=== PATIENT | female | born 2000 | race Caucasian/White ===

== ENCOUNTER 2020-05-25 17:18 | Inpatient (IN) ==
[2020-05-25 17:47] LABS: Basophils % 0.3 %; Eosinophils # 0.3 K/mcL (0.0-0.6); Hemoglobin 16.7 g/dL (11.5-15.4); Immature Granulocytes % 0.3 % (0-4); Lymphocytes # 2.8 K/mcL (0.6-4.6); Mean Corpuscular HGB Conc 32.7 g/dL (31.6-35.5); Mean Corpuscular Volume 91.7 fL (83.0-100.0); Mean Platelet Volume 8.8 fL (9.4-12.4); Monocytes # 0.7 K/mcL (0.0-1.3); Monocytes % 5.3 %; Neutrophils # 8.5 K/mcL (1.6-8.9); Platelet Count 350 K/mcL (140-400); Red Blood Count 5.56 M/mcL (3.82-4.97); Red Cell Distribution Width 12.6 % (11.5-14.5); Segmented Neutrophils % 69.1 %; White Blood Count 12.4 K/mcL (4.3-11.1)
[2020-05-25 17:55] LABS: Bacteria,Urine Few per hpf (None-Few); Bilirubin,Urine Negative (Negative); Blood,Urine Negative (Negative); Clarity,Urine Turbid (Clear); Color,Urine Yellow (Yellow); Glucose,Urine (UA) Normal (Normal); Ketones,Urine Negative (Negative); Leukocyte Esterase,Urine Trace (Negative); Mucus,Urine Moderate per lpf (None-Few); Nitrite,Urine Negative (Negative); Protein,Urine 50 mg/dL (Neg-Trace); RBC,Urine 0-3 per hpf (0-3); Specific Gravity,Urine 1.028 (1.010-1.025); Squamous Epithelial Cell,Urine Many per hpf (None-Few); Urobilinogen,Urine Normal (Normal)
[2020-05-25 18:05] LABS: Amphetamine Screen,Urine Negative ng/mL (Cutoff=1000); Barbiturate Screen,Urine Negative ng/mL (Cutoff=200); Benzodiazepines Screen,Urine Negative ng/mL (Cutoff=200); Cannabinoid Screen,Urine Negative ng/mL (Cutoff = 50); Cocaine Screen,Urine Positive ng/mL (Cutoff= 300); Opiate Screen,Urine Negative ng/mL (Cutoff=300); Phencyclidine Screen,Urine Negative ng/mL (Cutoff=25)
[2020-05-25 18:05] LABS: Acetaminophen < 10 mcg/mL (10-20); BUN/Creatinine Ratio 13 (6-26); Blood Urea Nitrogen 12 mg/dL (6-20); Calcium 9.5 mg/dL (8.6-10.3); Carbon Dioxide 27 mEq/L (23-29); Chloride 103 mEq/L (98-107); Chol/HDL Ratio 1.6 (0-4.9); Cholesterol 75 mg/dL (< 200); Ethanol < 10 mg/dL (Less than 10); Glucose 98 mg/dL (70-105); HDL Cholesterol 47 mg/dL (40-59); LDL Cholesterol,Calculated 10 mg/dL (< 100); Osmolality,Calculated 286 (280-300); Potassium 3.5 mEq/L (3.5-5.1); Salicylate < 2.5 mg/dL (15.0-30.0); Sodium 138 mEq/L (136-145); Triglycerides 89 mg/dL (< 150); eGFR For African Americans > 60 (> 60); eGFR For Non-African Americans > 60 (> 60)
[2020-05-25] MEDS ORDERED: *HR* LORazepam 2 MG/ML VIAL IM PRN (19:07)
[2020-05-25] MEDS ORDERED: Haloperidol Lactate 5 MG/ML VIAL IM PRN (19:07)
[2020-05-25] MEDS ORDERED: Mag Hydrox/Al Hydrox/Simeth 30 ML UDC PO PRN (19:07)
[2020-05-25] MEDS ORDERED: haloperidoL 5 MG TABLET PO PRN (19:07)
[2020-05-25] MEDS ORDERED: MOM Conc 10 ML UD.LIQ PO PRN (19:07)
[2020-05-25] MEDS ORDERED: *HR* LORazepam 1 MG TABLET PO PRN (19:07)
[2020-05-25] MEDS ORDERED: Acetaminophen 325 MG TABLET PO PRN (19:07)
[2020-05-25 19:30] LABS: Estimated Average Glucose 117 mg/dl
[2020-05-25] MEDS: hydrOXYzine pamoate 25 MG CAPSULE PO PRN (22:03)
[2020-05-25] MEDS: traZODone 50 MG TABLET PO PRN (22:03)
[2020-05-26] MEDS: Nicotine 14 MG PATCH.TD24 TD SCH ×2 (00:10→09:18)
[2020-05-26] MEDS: Neosporin OINT 15 GM TUBE TP SCH ×3 (09:54→20:22)
[2020-05-26] MEDS: hydrOXYzine pamoate 25 MG CAPSULE PO PRN (22:33)
[2020-05-26] MEDS: traZODone 50 MG TABLET PO PRN (22:33)
[2020-05-27 07:51] VITALS: BP 126/76
[2020-05-27] MEDS: Neosporin OINT 15 GM TUBE TP SCH (08:57)
[2020-05-27] MEDS ORDERED: Nicotine 21 MG PATCH.TD24 TD SCH (09:00)
== END 2020-05-27 12:51 | disposition home or self-care (01) | DRG 751 ==
LOC: EMEROOARM 17:18 → 1ANU 19:05
PROVIDERS: ADMIT Psychiatry & Neurology Psychiatry; ATTEND Psychiatry & Neurology Psychiatry